=== PATIENT | male | born 1985 | race Caucasian/White ===

== ENCOUNTER 2016-11-30 08:39 | Emergency (ER) | payer OTHER ==
--- NOTE | ~2016-11-30 | CR63 ---
[facility]. [facility] A Service of [facility] & [facility] RADIOLOGY TEXT RESULTS PATIENT: SORAYA CARLOS LOCATION: SED : [birth year] UNIT #: [id number] AGE: [address]: Dylan Haas MD SEX: M ORDER DR: [id number] [place] [id number] E MR#: [id number] Acc #: [id number] NAME: SORAYA CARLOS : 1985 SEX: M STUDY DATE/TIME: 11/30/2016 UNIT: SED ROOM: STUDY DESCRIPTION: CR Chest 2 View Attending Physician: Dylan Haas M.D. Ordering Physician: Dylan Haas M.D. Primary Care Physician: No Primary Care Physician MEDICAL IMAGING REPORT This report is preliminary unless electronic signature is present. EXAM Chest 2 views 11/30/2016 09:09 hours HISTORY 31-year-old man with complaint of cough for 2 months. Congestion. COMPARISON 11/15/2013 FINDINGS Upright PA and lateral views of the chest demonstrate normal cardiac, mediastinal and hilar contours. The lungs are well expanded and clear of acute densities. Benign calcified granulomata are present. There is no pleural effusion or pneumothorax. IMPRESSION Benign calcified granulomatous changes. Otherwise normal chest. Dictated by... Michelle Gomes M.D. THIS IS AN ELECTRONICALLY VERIFIED REPORT Michelle Gomes M.D. at 12/01/2016 9:15 AM LAURYN/linn TD: 11/30/2016 15:08 JOB #: [id number] MEDICAL IMAGING REPORT Page 1 of 1
[~2016-11-30 08:39] MED LIST: ACYCLOVIR PO; MAGIC MOUTHWASH; ULTRAM PO
[2016-11-30 09:40] LABS: INFLUENZA A NEG (NEG); INFLUENZA B NEG (NEG)
== END 2016-11-30 10:59 | disposition home or self-care (01) ==
LOC: SED 08:39
PROVIDERS: Emergency Medicine
DX: J20.9 Acute bronchitis, unspecified (principal); J01.00 Acute maxillary sinusitis, unspecified; J01.20 Acute ethmoidal sinusitis, unspecified; Z87.891 Personal history of nicotine dependence
CPT/HCPCS: 71020; 87804; 94640; 99283

== ENCOUNTER 2016-12-03 06:14 | Emergency (ER) | payer OTHER ==
[~2016-12-03] VITALS: Ht 185.4 cm; Wt 111.1 kg
--- NOTE | ~2016-12-03 | CR108 ---
[facility] A Service of [facility] & [facility] RADIOLOGY TEXT RESULTS PATIENT: SORAYA CARLOS LOCATION: [facility] : [birth year] UNIT #: [id number] AGE: [address]: Moses Bean MD SEX: M ORDER DR: [id number] [facility] [address] [place], [place] [address] [id number] E MR#: [id number] Acc #: [id number] NAME: SORAYA CARLOS : 1985 SEX: M STUDY DATE/TIME: 12/03/2016 6:38 UNIT: [facility] ROOM: STUDY DESCRIPTION: CR Finger 2 View 2nd Lt Attending Physician: Moses Bean M.D. Ordering Physician: Moses Bean M.D. Primary Care Physician: Primary Care Physician No MEDICAL IMAGING REPORT This report is preliminary unless electronic signature is present EXAM Left second digit series 12/03/2016 INDICATIONS Pain and laceration of the tip of the second digit today. The second digit was caught in a door hole. TECHNIQUE 3 views. No comparisons FINDINGS There is no evidence of fracture, dislocation, or radiopaque foreign body. IMPRESSION Normal 3 view second digit. Dictated by... Ilya Kearns M.D. THIS IS AN ELECTRONICALLY VERIFIED REPORT Ilya Kearns M.D. at 12/04/2016 8:02 AM CAMELIA/hernan TD: 12/04/2016 01:34 JOB #: [id number] MEDICAL IMAGING REPORT Page 1 of 1 COPY
== END 2016-12-03 08:00 | disposition home or self-care (01) ==
LOC: CED 06:14
DX: S60.022A Contusion of left index finger without damage to nail, initial encounter (principal); W23.0XXA Caught, crushed, jammed, or pinched between moving objects, initial encounter
CPT/HCPCS: 29130; 73140; 99283